=== PATIENT | female | born 1975 | race Caucasian/White ===

== ENCOUNTER 2016-12-12 15:53 | Emergency (ER) | payer OTHER ==
[~2016-12-12] VITALS: Ht 147.3 cm; Wt 70.9 kg
[~2016-12-12 15:53] MED LIST: BACTRIM,SEPT1 TABLET PO; BENADRYL ALLERG25 MG PO; IBUPROFEN800 MG PO; NOHOMEMEDS; ULTRAM50 MG PO
[2016-12-12 16:51] LABS: CHLORIDE 107 mEq/L (99-109); POTASSIUM 3.9 mEq/L (3.7-5.4); SODIUM 138 mEq/L (136-147)
[2016-12-12 16:52] LABS: GLUCOSE 97 mg/dL (70-99)
[2016-12-12 16:54] LABS: ANION GAP 9 MEQ/L (2-14)
[2016-12-12 16:56] LABS: GFR ESTIMATE (CALCULATED) > 59 mL/min/
[2016-12-12 16:57] LABS: UREA NITROGEN (BUN) 8 mg/dL (9-23)
[2016-12-12 17:04] LABS: QUANTITATIVE HCG < 4.0 MIU/ML
[2016-12-12] MEDS ORDERED: MOTRIN800 MG PO (19:19)
[2016-12-12 19:47] VITALS: BP 136/92
[2016-12-13] MEDS ORDERED: CLEOCIN300 MG PO (16:32)
[2016-12-13] MEDS ORDERED: ZOFRAN ODT4 MG PO (17:41)
[2016-12-13] MEDS ORDERED: FIORICET,ESG1 TABLET PO (17:41)
== END 2016-12-12 19:49 | disposition home or self-care (01) ==
LOC: EME 15:53
PROVIDERS: Nurse Practitioner Family
DX: L03.211 Cellulitis of face (principal); K02.9 Dental caries, unspecified; Z88.5 Allergy status to narcotic agent
CPT/HCPCS: 70486; 80048; 84702; 99281; 99284; J1885; J7030

== ENCOUNTER 2016-12-13 15:00 | Emergency (ER) | payer OTHER ==
[~2016-12-13] VITALS: Ht 147.3 cm; Wt 70.4 kg
[~2016-12-13 15:00] MED LIST changes: +MOTRIN800 MG PO
[2016-12-13] MEDS ORDERED: CLEOCIN300 MG PO (16:32)
[2016-12-13] MEDS ORDERED: FIORICET,ESG1 TABLET PO (17:41)
[2016-12-13] MEDS ORDERED: ZOFRAN ODT4 MG PO (17:41)
[2016-12-13 17:53] VITALS: BP 143/74
== END 2016-12-13 17:41 | disposition home or self-care (01) ==
LOC: EME 15:00
DX: G43.909 Migraine, unspecified, not intractable, without status migrainosus (principal); L02.01 Cutaneous abscess of face; K02.9 Dental caries, unspecified; Z88.5 Allergy status to narcotic agent
CPT/HCPCS: 99281; 99283